=== PATIENT | female | born 1985 | race African-American/Black ===

== ENCOUNTER 2025-05-16 23:09 | Emergency (ER) | payer OTHER, SELFPAY ==
[2025-05-16 23:40] VITALS: BP 160/88
[2025-05-17 00:14] VITALS: BMI 32.3
[2025-05-17 00:15] VITALS: BP 120/99
--- NOTE | 2025-05-17 01:16 | ED.GENMED ---
History of Present Illness
General
Chief Complaint: Ear Problem
Source: patient
Exam Limitations: none
Time Seen by Provider: 05/17/25 01:11
History of Present Illness
History of Present Illness:
Patient with a popping sensation mostly to the right ear with some mild pain and pressure. Some decreased hearing and some dizziness at times. Started last week. Got worse when she flew on a flight to [place] and her ears would not pop. No sore
throat no fever chills no neck pain no other complaints.
Past History
Past History
ED Past Medical History: Asthma, COPD and Other (Sarcoidosis)
Review of Systems
Review of Systems
All Other Systems: Not applicable
Constitutional: Denies fever
Phy Exam
Physical Exam
Physical Exam:
GENERAL: Alert and oriented in no apparent distress
EYE: Orbits normal.
NECK: Supple, no swelling
ENT: Pharynx without erythema. Left TM normal with good light reflex. Right TM with some light reflex however diminished with some mild erythema superiorly. Some fluid behind the drum
LUNGS: No distress
NEUROLOGICAL: Alert and oriented , grossly non-focal
SKIN: Warm and dry
PSYCH: Normal and appropriate interaction.
Course
Orders/Labs/Results
Orders:
Orders
05/17/25 01:16
Amoxicillin [Amoxil] 500 mg PO NOW STA
Vital Signs
Initial and Last Documented VS:
Initial Vital Signs
Temp Pulse Resp BP Pulse Ox
98.4 F 78 20 160/88 100
05/16/25 23:40 05/16/25 23:40 05/16/25 23:40 05/16/25 23:40 05/16/25 23:40
Last Documented Vital Signs
Temp Pulse Resp BP Pulse Ox
97.8 F 78 16 120/90 99
05/17/25 01:50 05/17/25 01:50 05/17/25 01:50 05/17/25 01:50 05/17/25 01:50
MDM/Problems Addressed
Differential Diagnosis Includes:
Symptoms consistent with a serous right otitis media with some eustachian tube dysfunction. Will cover with amoxicillin and steroid nasal spray and follow-up.
*Pulse Oximetry
SaO2: 99
Oxygen Mode of Delivery: Room air
Patient hypoxic: no
*Critical Care Note
Total Time (30-74mins, 75-104mins- exclusive of procedures): Not Applicable
ED Attending Note
-
Portions of this chart may have been created with voice recognition software.� Occasional wrong word or��sound alike� substitutions may have occurred due to the inherent limitations of voice recognition software.
Discharge Plan
Departure
Patient Disposition: Home (Routine Discharge)
Date of Disposition: 05/17/25
Time of Disposition: 01:18
Patient with high blood pressure during this ER visit?: Yes
Discharge Problem:
Serous right otitis media, Eustachian tube dysfunction
Instructions: Serous Otitis Media (DC), BLOOD PRESSURE
Prescriptions:
New
amoxicillin 500 mg capsule
500 mg PO TID 10 Days Qty: 30 0RF
No Action
prednisone 20 mg Tablet
20 mg PO BID
Referrals:
NONE,* [Family Provider, Internal Medicine]
Surekha Lerma MD [Active, Otology] - Next open appointment
Stand Alone Forms: Return to Work
Activity Restrictions/Additional Instructions:
The prescription for the antibiotic was sent to your pharmacy
Also recommend Nasacort nasal spray. 1 puff to each nostril twice a day for 2 weeks
I gave you the name of an ENT doctor you can follow-up with if things are not improving significantly
Return sooner with increased pain increased dizziness fever unusual headache or any other concerning symptoms
Interventions
Interventions:
*Risk Screen - Suicide Last Done: 05/16/25 23:40
*General Assessment Last Done: 05/17/25 00:18
*Neglect/Abuse Screening Last Done: 05/16/25 23:40
*ED- Fall Risk Assessment Last Done: 05/17/25 00:40
*ED COVID-19 Vaccine History Last Done: 05/17/25 00:18
*ED Influenza Vaccine History Last Done: 05/17/25 00:18
*Nursing Disposition Last Done: 05/17/25 01:50
Discharge Date and Time
Discharge Date/Time: 05/17/25 01:56
Print Language: [place]ET[place]
[2025-05-17] MEDS: AMOXIL 500 MG PO (01:46)
[2025-05-17 01:50] VITALS: BP 120/90
== END 2025-05-17 01:56 | disposition home or self-care (01) ==
LOC: EMR 23:09
PROVIDERS: EMERGENCY PHYSICIAN Emergency Medicine
DX: H65.91 Unspecified nonsuppurative otitis media, right ear (principal); H69.91 Unspecified Eustachian tube disorder, right ear; R03.0 Elevated blood-pressure reading, without diagnosis of hypertension; J44.89 Other specified chronic obstructive pulmonary disease; D86.9 Sarcoidosis, unspecified
CPT/HCPCS: 99283